=== PATIENT | female | born 1975 | race African-American/Black ===

== ENCOUNTER 2017-04-08 01:21 | Emergency (ER) | payer OTHER ==
[~2017-04-08] VITALS: Ht 149.9 cm; Wt 55.0 kg
[2017-04-08 01:21] VITALS: BP 135/89
== END 2017-04-08 02:20 | disposition left against medical advice (07) ==
LOC: ER 01:21
DX: R10.9 Unspecified abdominal pain (principal); Z53.21 Procedure and treatment not carried out due to patient leaving prior to being seen by health care provider

== ENCOUNTER 2017-04-08 03:19 | Emergency (ER) | payer OTHER ==
[~2017-04-08] VITALS: Ht 149.9 cm; Wt 49.0 kg
[2017-04-08 07:31] LABS: BASOPHILS % 1.2 % (0.0-2.0); EOSINOPHILS % 2.7 % (0.0-5.0); HEMATOCRIT. 46.4 % (36.0-48.0); HEMOGLOBIN. 15.6 g/dL (12.0-16.0); LYMPHOCYTES % 39.9 % (20.0-50.0); MEAN CORPUSCULAR HEMOGLOBIN 30.2 pg (28.0-32.0); MEAN CORPUSCULAR VOLUME 90.2 fL (81.0-99.0); MEAN PLATELET VOLUME 9.9 fl (7.4-10.4); MONOCYTES % 10.6 % (2.0-8.0); NEUTROPHILS % 45.6 % (40.0-76.0); PLATELET 180 x1000/uL (130-400); RED BLOOD CELL COUNT 5.15 mill/uL (4.2-5.4); RED CELL DISTRIBUTION WIDTH 14.6 % (11.6-14.6)
[2017-04-08 07:35] LABS: INR 1.1; PROTHROMBIN TIME 11.2 sec (9.4-11.6)
[2017-04-08 07:37] LABS: CLARITY URINE CLEAR (CLEAR); COLOR URINE YELLOW (YELLOW); KETONES URINE 4+ (NEGATIVE); LEUKOCYTE ESTERASE URINE 2+ (NEGATIVE); NITRITE URINE NEGATIVE (NEGATIVE); OCCULT BLOOD URINE NEGATIVE (NEGATIVE); PROTEIN URINE NEGATIVE (NEGATIVE); SPECIFIC GRAVITY URINE 1.021 (1.005-1.030)
[2017-04-08 07:41] LABS: CARBON DIOXIDE 28 mEq/L (21-32); CHLORIDE 103 mEq/L (98-107); ETHANOL BLOOD < 10 mg/dL
[2017-04-08] MEDS ORDERED: ONDANSETRON HCL 4MG/2ML VIAL IV ONE (08:30)
[2017-04-08] MEDS ORDERED: SODIUM CHLORIDE 0.9% 1,000 ML IV ONE (08:30)
[2017-04-08 08:42] LABS: HCG SCREEN NEGATIVE
[2017-04-08] MEDS ORDERED: METRONIDAZOLE 500MG TABLET PO ONE (08:45)
[2017-04-08] MEDS ORDERED: KETOROLAC 30MG/ML VIAL IV ONE (09:30)
[2017-04-08 10:15] VITALS: BP 125/74
[2017-04-08] MEDS ORDERED: CEFTRIAXONE SODIUM 250 MG/VIAL IM ONE (11:00)
[2017-04-08] MEDS ORDERED: AZITHROMYCIN 500 MG TABLET PO ONE (11:00)
[2017-04-08] MEDS ORDERED: LIDOCAINE HCL 1% 20ML VIAL (Pyxis) INJ INFIL ONE (11:00)
[2017-04-08 13:47] LABS: *AMPHETAMINES SCREEN URINE NEGATIVE (NEGATIVE); *BARBITURATES SCREEN URINE NEGATIVE (NEGATIVE); *BENZODIAZEPINES SCREEN URINE NEGATIVE (NEGATIVE); *COCAINE SCREEN URINE NEGATIVE (NEGATIVE); METHADONE URINE SCREEN NEGATIVE (NEGATIVE); OPIATES URINE SCREEN NEGATIVE (NEGATIVE); PHENCYCLIDINE URINE SCREEN NEGATIVE (NEGATIVE)
[2017-04-08 14:08] LABS: CANNABINOID URINE SCREEN PRESUMTIVE POSITIVE (NEGATIVE)
== END 2017-04-08 11:50 | disposition home or self-care (01) ==
LOC: ER 03:19
DX: A59.9 Trichomoniasis, unspecified (principal); N39.0 Urinary tract infection, site not specified; M32.9 Systemic lupus erythematosus, unspecified; F17.200 Nicotine dependence, unspecified, uncomplicated; F12.10 Cannabis abuse, uncomplicated; Z88.5 Allergy status to narcotic agent
CPT/HCPCS: 36415; 76705; 80053; 80305; 81001; 83690; 84703; 85025; 85610; 87086; 96361; 96372; 96374; 96375; 99285; G0482; J0696; J1885; J2405; J3490; J7030; Z7610

== ENCOUNTER 2019-06-10 08:18 | Emergency (ER) | payer SELFPAY ==
[~2019-06-10] VITALS: Ht 149.9 cm; Wt 46.0 kg
[2019-06-10] MEDS ORDERED: ACETAMINOPHEN 500MG TABLET PO ONE (14:30)
[2019-06-10 17:16] VITALS: BP 116/76
== END 2019-06-10 17:17 | disposition home or self-care (01) ==
LOC: ER 08:18
DX: R05 Cough (principal); R19.7 Diarrhea, unspecified; M32.9 Systemic lupus erythematosus, unspecified; F12.10 Cannabis abuse, uncomplicated; Z88.5 Allergy status to narcotic agent
CPT/HCPCS: 71045; 81025; 87804; 99284